=== PATIENT | male | born 1985 | race Hispanic/Latino ===

== ENCOUNTER 2021-11-15 10:41 | Emergency (ER) | payer BC ==
[~2021-11-15] VITALS: Ht 175.3 cm; Wt 77.1 kg
[2021-11-15] MEDS ORDERED: KETOROLAC TROMETHAMINE 30 MG/ML VIAL IV STA (11:21)
[2021-11-15] MEDS ORDERED: SODIUM CHLORIDE 0.9% 50ML 50 ML ONE (11:47)
[2021-11-15] MEDS ORDERED: IOPAMIDOL 370 MG/ML 200 ML INFUS..BTL INJ ONE (11:47)
[2021-11-15] MEDS ORDERED: SODIUM CHLORIDE 0.9% 1000ML 1,000 ML IV SCH (12:00)
[2021-11-15] MEDS ORDERED: CIPROFLOXACIN 500 MG TAB PO SCH (12:15)
[2021-11-15] MEDS ORDERED: KETOROLAC TROMETHAMINE 30 MG/ML VIAL ONE (12:23)
[2021-11-15] MEDS ORDERED: CIPROFLOXACIN 500 MG TAB ONE (12:26)
[2021-11-15] MEDS ORDERED: CIPRO500 MG PO (12:31)
[2021-11-15] MEDS ORDERED: ONDANSETRON ODT4 MG PO (12:32)
[2021-11-15] MEDS ORDERED: METRONIDAZOLE500 MG PO (12:32)
[2021-11-15] MEDS ORDERED: DICYCLOMINE HCL20 MG PO (12:33)
== END 2021-11-15 13:04 | disposition home or self-care (01) ==
LOC: FSED 11:10
DX: R10.32 Left lower quadrant pain (principal); K57.32 Diverticulitis of large intestine without perforation or abscess without bleeding; I10 Essential (primary) hypertension; R01.1 Cardiac murmur, unspecified
CPT/HCPCS: 74177; 80053; 81003; 85025; 99283; J1885; Q9967